=== PATIENT | male | born 1975 | race Hispanic/Latino ===

== ENCOUNTER 2017-10-17 15:29 | Emergency (ER) | payer SELFPAY ==
[2017-10-17 15:45] VITALS: BMI 25.7
[2017-10-17] MEDS ORDERED: Sodium Chloride 0.9% 1,000 ML IV STA (15:56)
[2017-10-17 16:05] VITALS: RESP 18; TEMP 98.5; O2SAT 100
--- NOTE | 2017-10-17 16:25 | ED PDOC ---
Arrival/HPI - General Chief Complaint: Abdominal Pain Time Seen by Provider: 10/17/17 15:45 Historian: Patient - History of Present Illness Narrative History of Present Illness (Text): 10/17/17 16:22 42yo male with no pmhx who was bib the EMS for complaint of LLQ abdominal pain x 2days. Reports urinary hesitancy. States he was able to urinate but only very little. Denies previous history, nausea, vomiting, diarrhea, constipation, fever , chills, back pain, hematuria, chest pain, any other complaint. Past Medical History - Provider Review Nursing Documentation Reviewed: Yes - Psychiatric Hx Substance Use: No Family/Social History - Physician Review Nursing Documentation Reviewed: Yes Family/Social History: Unknown Family HX Smoking Status: Former Smoker Hx Alcohol Use: Yes Frequency of alcohol use: Socially Hx Substance Use: No Allergies/Home Meds Allergies/Adverse Reactions: Allergies No Known Allergies Allergy (Verified 10/17/17 15:45) Review of Systems - Physician Review All systems were reviewed & negative as marked: Yes - Review of Systems Constitutional: Normal Eyes: Normal ENT: Normal Respiratory: Normal Cardiovascular: Normal Gastrointestinal: Abdominal Pain. absent: Constipation, Diarrhea, Nausea, Vomiting, Hematochezia, Hematemesis Genitourinary Male: Urinary Output Changes (Urinary hesistancy) Musculoskeletal: Normal Skin: Normal Neurological: Normal Endocrine: Normal Hemo/Lymphatic: Normal Psychiatric: Normal Physical Exam Vital Signs Reviewed: Yes Vital Signs Temp Pulse Resp BP Pulse Ox 10/17/17 19:40 78 18 118/72 100 10/17/17 17:55 85 18 122/83 100 10/17/17 17:21 87 18 133/90 100 10/17/17 16:00 98.5 F 83 18 132/82 100 Temperature: Afebrile Blood Pressure: Normal Pulse: Regular Respiratory Rate: Normal Appearance: Positive for: Well-Appearing, Non-Toxic, Comfortable Pain Distress: None Mental Status: Positive for: Alert and Oriented X 3 - Systems Exam Head: Present: Atraumatic, Normocephalic Pupils: Present: PERRL Extroacular Muscles: Present: EOMI Conjunctiva: Present: Normal Mouth: Present: Moist Mucous Membranes Neck: Present: Normal Range of Motion Respiratory/Chest: Present: Clear to Auscultation, Good Air Exchange. No: Respiratory Distress, Accessory Muscle Use Cardiovascular: Present: Regular Rate and Rhythm, Normal S1, S2. No: Murmurs Abdomen: Present: Tenderness (LLQ), Normal Bowel Sounds, Other (Soft). No: Distention, Peritoneal Signs, Rebound, Guarding, McBurney's Point Tender, Rovsing's Sign Present Back: Present: Normal Inspection Upper Extremity: Present: Normal Inspection. No: Cyanosis, Edema Lower Extremity: Present: Normal Inspection. No: Edema Neurological: Present: GCS=15, CN II-XII Intact, Speech Normal Skin: Present: Warm, Dry, Normal Color. No: Rashes Psychiatric: Present: Alert, Oriented x 3, Normal Insight, Normal Concentration Medical Decision Making ED Course and Treatment: 10/18/17 00:30 PT presented for stated history. He appeared in mild distress secondary to pain. Lab was ordered and reviewed and mild leukocysotis was noted Pt was hydrated and pain was controlled in Emergency department with medication Abdominal/Pelvic CT IMPRESSION: Mild left hydronephrosis and hydroureter up to 5 x 4 millimeter calculus at distal left ureter adjacent to the UV junction. 2 millimeter nonobstructing calculus at the midpole of the left kidney. Questionable large bowel wall thickening versus incomplete distention. Correlate clinically for colitis. Result was DW Dr. de la paz. He stated that patient should be DC home with pain medication and follow up with him. He requested that patient be given his cell number which was given and he also requested pt;s phone number and it was given. PT was DC home with flomax, perocet and cipro. He was hemodynamically stable and his pain was controlled in Emergency department. He was stable for DC. Strongly advised to f/u with Dr. De La Paz. - Lab Interpretations Lab Results: 10/17/17 16:12 10/17/17 16:12 Lab Results 10/17/17 16:40: Urine Color Yellow, Urine Appearance Clear, Urine pH 7.5, Ur Specific [place] 1.020, Urine Protein 30 H, Urine Glucose (UA) Negative, Urine Ketones Trace H, Urine Blood Large H, Urine Nitrate Negative, Urine Bilirubin Negative, Urine Urobilinogen 0.2, Ur Leukocyte Esterase Negative, Urine RBC 15 - 20, Urine WBC 5 - 10, Ur Epithelial Cells 3 - 4, Urine Bacteria Mod, Urine Other Mucus 10/17/17 16:12: Sodium 147, Potassium 3.6, Chloride 107, Carbon Dioxide 23, Anion Gap 21 H, BUN 22 H, Creatinine 1.1, Est GFR ( Amer) > 60, Est GFR ( Non-Af Amer) > 60, Random Glucose 103, Calcium 10.0, Magnesium 2.1, Total Bilirubin 0.6, AST 36, ALT 45, Alkaline Phosphatase 60, Total Protein 8.5 H, Albumin 4.8, Globulin 3.6, Albumin/Globulin Ratio 1.3, Lipase 87 10/17/17 16:12: PT 11.1, INR 0.97, APTT 26.5 10/17/17 16:12: WBC 12.0 H, RBC 4.84, Hgb 14.8, Hct 40.5 L, MCV 83.7, MCH 30.6, MCHC 36.5, RDW 12.8, Plt Count 183, MPV 9.7, Gran % 66.2, Lymph % (Auto) 25.0, Carbon % (Auto) 7.6 H, Eos % (Auto) 0.9 L, Baso % (Auto) 0.3, Gran # 7.95 H, Lymph # (Auto) 3.0, Carbon # (Auto) 0.9 H, Eos # (Auto) 0.1, Baso # (Auto) 0.03 - RAD Interpretation Radiology Orders: 10/17/17 15:56 ABD & PELVIS W/O PO OR IV CONT [CT] Stat - Medication Orders Current Medication Orders: Discontinued Medications Ciprofloxacin (Cipro) 500 mg PO ONCE STA PRN Reason: Protocol Stop: 10/17/17 19:13 Last Admin: 10/17/17 19:44 Dose: 500 mg Famotidine (Pepcid) 20 mg IVP STAT STA Stop: 10/17/17 15:57 Last Admin: 10/17/17 16:15 Dose: 20 mg IVP Administration Document 10/17/17 16:15 GMD (Rec: 10/17/17 16:15 GMD [id number]) Charges for Administration # of IVP Administrations 1 Sodium Chloride (Sodium Chloride 0.9%) 1,000 mls @ 1,000 mls/hr IV .Q1H STA Stop: 10/17/17 16:55 Last Admin: 10/17/17 16:15 Dose: 1,000 mls/hr eMAR Start Stop Document 10/17/17 16:15 GMD (Rec: 10/17/17 16:16 D [id number]) Intravenous Solution Start Date 10/17/17 Start Time 16:15 End Date 10/17/17 End time 17:15 Total Infusion Time 60 Ketorolac Tromethamine (Toradol) 30 mg IVP STAT STA Stop: 10/17/17 15:57 Last Admin: 10/17/17 16:15 Dose: 30 mg MAR Pain Assessment Document 10/17/17 16:15 GMD (Rec: 10/17/17 16:15 D [id number]) Pain Reassessment Is this a pain reassessment? No IVP Administration Document 10/17/17 16:15 GMD (Rec: 10/17/17 16:15 GMD [id number]) Charges for Administration # of IVP Administrations 1 Morphine Sulfate (Morphine) 4 mg IVP STAT STA Stop: 10/17/17 17:46 Last Admin: 10/17/17 17:52 Dose: 4 mg MAR Pain Assessment Document 10/17/17 17:52 GMD (Rec: 10/17/17 17:52 GMD [id number]) Pain Reassessment Is this a pain reassessment? Yes Sleep Is patient sleeping during reassessment? No Presence of Pain Presence of Pain Yes Pain Scale Used Pain Scale Used Numeric Description Description Intermittent Intensity of Pain at present 8 IVP Administration Document 10/17/17 17:52 GMD (Rec: 10/17/17 17:52 GMD [id number]) Charges for Administration # of IVP Administrations 1 Morphine Sulfate (Morphine) 4 mg IVP STAT STA Stop: 10/17/17 19:28 Last Admin: 10/17/17 19:44 Dose: 4 mg MAR Pain Assessment Document 10/17/17 19:44 IT (Rec: 10/17/17 19:44 IT [id number]) Pain Reassessment Is this a pain reassessment? No Sleep Is patient sleeping during reassessment? No Presence of Pain Presence of Pain Yes Pain Scale Used Pain Scale Used Numeric IVP Administration Document 10/17/17 19:44 IT (Rec: 10/17/17 19:44 IT [id number]) Charges for Administration # of IVP Administrations 1 Tamsulosin HCl (Flomax) 0.4 mg PO STAT STA Stop: 10/17/17 19:13 Last Admin: 10/17/17 19:44 Dose: 0.4 mg Disposition/Present on Arrival - Present on Arrival Any Indicators Present on Arrival: No History of DVT/PE: No History of Uncontrolled Diabetes: No Urinary Catheter: No History of Decub. Ulcer: No History Surgical Site Infection Following: None - Disposition Have Diagnosis and Disposition been Completed?: Yes Diagnosis: Nephrolithiasis Disposition: HOME/ ROUTINE Disposition Time: 19:15 Patient Plan: Discharge Condition: STABLE Discharge Instructions (ExitCare): Kidney Stones in Adults Additional Instructions: Follow up with Urologist, Dr. De La Paz Drink plenty of fluid Return to Emergency department for any new or worsening symptoms Prescriptions: Ciprofloxacin HCl [Cipro] 500 mg PO BID #14 tablet oxyCODONE/Acetaminophen [Percocet 5/325 mg Tab] 1 ea PO Q6 #10 tab Tamsulosin [Flomax] 0.4 mg PO DAILY #3 cap Referrals: Tato De La Paz MD [Staff Provider] - Follow up with primary Forms: [employer] ([place])
[2017-10-17 16:36] LABS: BASO # 0.03 K/mm3 (0.0-2.0); BASO % 0.3 % (0.0-3.0); EOS # 0.1 (0.0-0.7); EOS % 0.9 % (1.5-5.0); GRAN # 7.95 (1.4-6.5); GRAN % 66.2 % (50.0-68.0); HEMOGLOBIN 14.8 g/dL (14.0-18.0); MEAN CELL VOLUME 83.7 fl (80.0-105.0); MEAN CORPUSCULAR HEMOGLOBIN 30.6 pg (25.0-35.0); MEAN CORPUSCULAR HGB CONC 36.5 g/dl (31.0-37.0); MEAN PLATELET VOLUME 9.7 fl (7.0-11.0); MONO # 0.9 (0.1-0.6); MONO % 7.6 % (1.0-6.0); RBC 4.84 10^6/uL (3.5-6.1); RED CELL DISTRIBUTION WIDTH 12.8 % (11.5-14.5)
[2017-10-17 16:45] LABS: INR 0.97; PARTIAL THROMBOPLASTIN TIME 26.5 Seconds (25.1-36.5); PROTHROMBIN TIME 11.1 SECONDS (9.4-12.5)
[2017-10-17 16:48] LABS: ALB/GLOB RATIO 1.3 (1.1-1.8); ALBUMIN 4.8 g/dL (3.0-4.8); ALT/SGPT 45 U/L (7-56); AST/SGOT 36 U/L (17-59); BLOOD UREA NITROGEN 22 mg/dL (7-21); GFR AFRICAN-AMERICAN > 60; GFR NON-AFRICAN AMERICAN > 60; LIPASE 87 U/L (23-300)
[2017-10-17 17:00] LABS: PH,URINE 7.5 (4.7-8.0); URINE BILIRUBIN NEGATIVE (NEGATIVE); URINE BLOOD LARGE (NEGATIVE); URINE GLUCOSE (UA) NEGATIVE (NEGATIVE); URINE LEUKOCYTE ESTERASE NEGATIVE Leu/uL (NEGATIVE); URINE PROTEIN 30 mg/dL (<30 mg/dL); URINE UROBILINOGEN 0.2 E.U./dL (<1 E.U./dL)
[2017-10-17 17:02] LABS: URINE APPEARANCE CLEAR (CLEAR); URINE COLOR YELLOW (YELLOW)
[2017-10-17 17:33] LABS: URINE RBC 15 - 20 /hpf (0-2)
[2017-10-17 17:39] LABS: URINE BACTERIA MOD (NEG)
[2017-10-17] MEDS ORDERED: Morphine 4 mg/ml ISec IVP STA ×2 (17:45→19:27)
--- NOTE | 2017-10-17 18:20 | CT ---
Date of service: 10/17/2017 PROCEDURE: CT Abdomen and Pelvis without intravenous contrast HISTORY: LLQ pain COMPARISON: None. TECHNIQUE: Axial and reformatted coronal and sagittal CT images of the abdomen and pelvis were obtained without IV or oral contrast administration.. Contrast dose: 0 Radiation dose: Total exam DLP = 345.67 mGy-cm. This CT exam was performed using one or more of the following dose reduction techniques: Automated exposure control, adjustment of the mA and/or kV according to patient size, and/or use of iterative reconstruction technique. FINDINGS: LOWER THORAX: No evidence of acute pathology. LIVER: Unremarkable. No gross lesion or ductal dilatation. GALLBLADDER AND BILE DUCTS: Unremarkable. PANCREAS: Unremarkable. No gross lesion or ductal dilatation. SPLEEN: Unremarkable. ADRENALS: Unremarkable. No mass. KIDNEYS AND URETERS: There is mild left hydronephrosis and hydroureter up to 5 x 4 millimeter calculus at the distal left ureter adjacent to the UV junction. There is 2 millimeter nonobstructing calculus at the midpole of the left kidney. The right kidney is grossly unremarkable. VASCULATURE: Unremarkable. No aortic aneurysm. BOWEL: Transverse and descending colon wall thickening versus incomplete distention. The possibility of colitis cannot be excluded. There is no evidence of high-grade small bowel obstruction APPENDIX: Unremarkable. Normal appendix. PERITONEUM: Unremarkable. No free fluid. No free air. LYMPH NODES: Unremarkable. No enlarged lymph nodes. BLADDER: Unremarkable. REPRODUCTIVE: Unremarkable. BONES: No acute fracture. OTHER FINDINGS: None. IMPRESSION: Mild left hydronephrosis and hydroureter up to 5 x 4 millimeter calculus at distal left ureter adjacent to the UV junction. 2 millimeter nonobstructing calculus at the midpole of the left kidney. Questionable large bowel wall thickening versus incomplete distention. Correlate clinically for colitis.
[2017-10-17 19:40] VITALS: BP 118/72; PULSE 78
== END 2017-10-17 20:32 | disposition home or self-care (01) ==
LOC: ED 15:29
DX: N20.0 Calculus of kidney (principal); Z87.891 Personal history of nicotine dependence
CPT/HCPCS: 74176; 80053; 81001; 83690; 83735; 85025; 85610; 85730; 87086; 96361; 96374; 96375; 96376; 99285; J1885; J2270; J7030